=== PATIENT | female | born 1995 | race Caucasian/White ===

== ENCOUNTER 2021-01-28 05:32 | Inpatient (IN) | payer BC, SELFPAY ==
[2021-01-28] VITALS (52 sets, daily range): BP systolic 87–136; BP diastolic 49–82; PULSE 70–121; RESP 16–18; TEMP 36.3–36.9; O2SAT 88–100; BMI 25.7
[2021-01-28 06:29] LABS: Source Nasal/Nares
[2021-01-28 06:54] LABS: ROM Plus Positive
[2021-01-28 07:19] LABS: COVID-19 PCR Negative (Negative)
--- NOTE | 2021-01-28 07:38 | ANES.PREOP_ITS ---
General Info Date of Service Date Performed: 01/28/21 Height: 5 ft 4 in Weight: 68.039 kg Body Mass Index (BMI): 25.7 Meds Allergies and Home Medications Current Visit Medications: Current Medications Generic Name Dose Route Start Last Admin Trade Name Freq PRN Reason Stop Dose Admin Fentanyl/Ropivacaine 200 ml 01/28/21 07:15 Fentanyl/Ropivacaine 2 Mcg/Ml And 0.1% 200 Ml Cadd Cassette EP DIRECTED CLAYTON Sodium Chloride 500 mls @ 0 mls/hr 01/28/21 05:32 Saline 500ml Bag IV PRN PRN As Directed Ringer's Solution 500 mls @ 500 mls/hr 01/28/21 07:10 IV 01/28/21 08:09 BOLUS ONE IV Miscellaneous Supplies 1 each 01/28/21 05:45 Iv Access IV DIRECTED CLAYTON Sodium Chloride 0 ml 01/28/21 05:32 Normal Saline Flush 10 Ml Syr IVP PRN PRN PFSH Tobacco Smoking/Tobacco Use Status: Never Alcohol Alcohol Intake: never Substance Use Substance use type: does not use Prental History History 1 Para 0 Hx # Term Pregnancies Multiple births Hx # Pregnancies Ectopic pregnancies AB induced Hx Number of Living Children AB spontaneous Vital Signs and Lab Results Vital Signs Most Recent Vital Signs in EMR: Most Recent Vital Signs Temp Pulse Resp BP Pulse Ox 36.9 C 74 18 136/79 99 01/28/21 06:02 01/28/21 07:35 01/28/21 06:02 01/28/21 06:04 01/28/21 07:35 Lab Results Result Diagrams: 01/28/21 05:32 Blood Type / Crossmatch: Patient ABO/Rh Pending 01/28/21 05:32 01/28/21 Complete Blood Count: White Blood Count Pending 01/28/21 05:32 01/28/21 Red Blood Count Pending 01/28/21 05:32 01/28/21 Hemoglobin Pending 01/28/21 05:32 01/28/21 Hematocrit Pending 01/28/21 05:32 01/28/21 Platelet Count Pending 01/28/21 05:32 01/28/21 Complete Metabolic Panel: No Data to Display Liver Function Panel: No Data to Display Coagulation Panel: No Data to Display Cardiac Panel: No Data to Display Arterial Blood Gas: No Data to Display Venous Blood Gas: No Data to Display Pancreas Panel: No Data to Display Thyroid Panel: No Data to Display Infectious Disease: Coronavirus (COVID-19)(PCR) Negative (Negative) 01/28/21 06:20 01/28/21 Coronavirus 2019 Source Nasal/Nares 01/28/21 06:20 01/28/21 Blood Cultures: 2 No Data to Display Toxicology Panel: No Data to Display Panel: No Data to Display Anesthesia Assessment and Plan Anesthesia History Personal History: No History of Anesthesia Complications Family History: No Family History of Anesthesia Complications Exercise Tolerance Exercise Tolerance: Metabolic Equivalents>4 Pertinent Negatives Pertinent Negatives: No Symptoms of GERD Cardiac & Pulmonary Exam Cardiac Exam: Normal S1/S2 Heart Sounds Pulmonary Exam: Clear Bilateral Breath Sounds Implantable Cardiac Device Does patient have a Pacemaker or an ICD?: No Airway Exam Known Difficult Airway: No Mallampati Class: 2 Mouth Opening: Normal (> 3cm) Thyromental Distance: Greater than 3 cm Neck Range of Motion: Full ROM Neck Circumference: Normal Teeth Condition: Normal Dentition ASA Classification ASA Score: ASA 2 Emergency Case?: No NPO Status NPO Status: NPO Clears >2 hours, Solids >8 hours Status Status: Confirmed Anesthesia Plan Resuscitation Status: Full Code Anesthesia Technique: Epidural Anesthesia Airway Planned: Natural Airway Pain Management: Surgeon and patient request nerve block Monitors Used: Standard Monitors
[2021-01-28 08:04] LABS: HCT 30.1 % (36.0-46.0); HGB 8.6 g/dL (11.2-15.7); MCH 19.9 pg (27.0-33.0); MCHC 28.6 % (32.0-36.0); MCV 69.5 fL (80-95); RBC 4.33 10^6/uL (3.93-5.22); RDW 18.7 % (11.7-14.6); WBC 15.97 10^3/uL (4.4-10.8)
--- NOTE | 2021-01-28 08:23 | HPE_ITS ---
Date of service: 01/28/21 Time of Service: 08:23 Assessment and Plan Assessment and plan (1) : Status: Acute Assessment and plan: Nimisha is in labor at term. Bleeding likely due to a quicker progression of cervical dilation, FHT with some variables earlier possibly but now resolved, Category 1. Epidural is in place and effective. GBS-. Routine labor management, anticipate . Qualifiers: Weeks of gestation: 39 weeks Qualified Code(s): Z3A.39 - 39 weeks gestation of OB-HPI Labor/Delivery History of Present Illness Reason for Visit: Labor Chief Complaint: Uterine Contractions. VANESSA Calculator Estimated Delivery Date Method Current WG Current Estimate 02/04/21 LMP (Certain) 39w 0d History of Present Expected Delivery Route/Plan Nimisha is 24yo at 39.1w with Rh+ RI HepB- GBS-. Uncomplicated other than possible labor treated with betamethasone and nifedipine which resolved. Now at term, reported contractions started last night at 830pm and became more frequent by morning. She called around 330am with concern for SROM v urination as well as significant vaginal bleeding with clots and ongoing bleeding. Due to her location, she was first triaged at [facility] and found to be stable but in active labor, SVE 4-5cm. She then came directly here where ROM+ was positive although no active fluid leaking and no active bleeding. SVE at that time was 5-6cm. She was admitted in labor and soon requested epidural. She does report feeling out of it and a little dizzy. Review of Systems All systems reviewed & are unremarkable except as noted in HPI and below [facility] Active Problem List (Updated 01/28/21 @ 08:35 by Ernesto Hyman) (Acute) Social History Smoking/Tobacco Use Status: Never Smoking risk assessment performed?: Yes Alcohol Intake: never Substance use type: does not use Do you feel safe at home: Yes Do you feel safe in your relationship?: Yes History History 1 Para 0 Hx # Term Pregnancies Multiple births Hx # Pregnancies Ectopic pregnancies AB induced Hx Number of Living Children AB spontaneous Exam Physical Exam Vital signs: Temp Pulse Resp BP Pulse Ox 36.9 C 77 18 112/64 100 01/28/21 06:02 01/28/21 08:21 01/28/21 06:02 01/28/21 08:19 01/28/21 08:21 Vital Signs Reviewed: Yes Constitutional Constitutional: no acute distress Detailed Labor and Delivery Exam Solano Score: Cervical Points Exam 0 1 2 3 Dilation Closed 1-2cm 3-4 cm 5-6cm Effacement 0-30% 40-50% 60-70% 80% Consistency Firm Medium Soft Station -3 -2 -1,0 +1,+2 Position Posterior Mid Anterior Amniotic Membrane Status: Ruptured Rupture Method: Spontaneous ROM Plus: Positive Monitor Mode: External Contraction Frequency(min): q5-10min Contraction Duration(sec): 60 Contraction Intensity: Mild/Moderate Fetus A Heart Rate Baseline: 145 Monitor Accelerations: 15 X 15 Monitor Decelerations: Variable Variability: Moderate (6-25 BPM) Presentation: Cephalic Categories: Category II Date of Membrane Rupture: 01/28/21 Time of Membrane Rupture: 03:30 HEENT Exam HEENT Exam: Normal Respiratory Exam Respiratory Exam: Normal Cardiovascular Exam Cardiovascular Exam: Normal Abdominal Exam Abdominal Exam: Normal Extremities Exam Extremities Exam: Normal Back/Spine/Pelvis Exam Back Exam: Normal Pelvis Adequate: Yes Neurological Exam Neurological Exam: Normal Psychiatric Exam Psychiatric Exam: Normal Results Results Group Beta Strep: Negative Blood Type: A+ Varicella Immunity: Not Tested Risk Assessment Risk for Shoulder Dystocia Historical/Initial OB: NEGATIVE FOR: Pelvic Abnormality, Pre- BMI>30, Previous Shoulder Dystocia or Previous Macrosomia Increased Risk?: No Risk for Pre-Eclampsia Daily Dose ASA Indicated: No Risk for Post- Hemorrhage At Risk?: No Risks Reviewed Risks Reviewed Upon Admission: Yes
--- NOTE | 2021-01-28 08:25 | W.ANESNEU ---
Epidural/Spinal Catheter Date Performed: 01/28/21 Procedure Start: 07:55 Procedure Stop: 08:19 Requesting Provider: Ernesto Hyman Procedure Location: Obstetrics Reason Performed: Labor Epidural Standard Monitors Applied: Blood Pressure and SpO2 Patient Position: Sitting Sedation Given (Indicate Dose Given): No Sedation given Patient Mental Status: Awake Sterility: Hand Hygiene, Surgical Cap, Surgical Mask, Sterile Gloves, Sterile Drape/Sheet and Chlorhexidine Procedure Location: L4-L5 Interspace Epidural Needle: Tuohy 17 Guage Needle Length: 3.5 Inch Needle Approach: Midline Epidural Procedure: Skin Prepped, Sterile Drape Placed, 1% Lidocaine to skin and subcutaneous tissue with 25G needle, Tuohy Needle placed, SERA to Air Used (3rd attempt), SERA to Saline Used (First two attempts ), Positive Heme Noted (First attempt. Positive test dose. Aborted first attempt ) and Negative CSF Flow Catheter Placed?: Catheter Placed Test Dose (Indicate Dose Given): 3ml 1.5% Lidocaine with 1:200K Epinephrine Given (2ml first attempt. 3 ml third attempt), Negative Test Dose (3rd attempt) and Positive Test Dose (First attempy) Loss of Resistance Depth (cm): 8 Catheter depth at skin (cm): 12 Dressing: Sorbaview Dressing Placed, Mastisol Used and Dressing reinforced with Tape Epidural Provider Bolus (Indicate Dose Given): Total Ropivacaine 0.1% with Fentanyl 2mcg/ml Given from pump (ml) Dose:: 8ml Additives (Indicate Dose Given ): None Infusion Medication: Medication Infusion Began Medication Infusion: Ropivacaine 0.1% with Fentanyl 2mcg/ml Maintenance Infusion Rate (ml/hour): 8 PCEA Bolus Dose (ml): 5 Block Level: T9 Paresthesia: Left (Second attempt abprted due to significant paresthesia with cath placement. Resolved with removal of cath) Paresthesia Duration: Transient Ultrasound: Not Used Number of Attempts (See previous attempts in note section): 3 Procedure Tolerated: Patient tolerated well Procedure Outcome: Successful Performed By: Cl Pittman
[2021-01-28 08:47] LABS: Platelet Count 169 10^3/uL (130-400)
[2021-01-28] MEDS: Ondansetron 4 MG/2 ML VIAL IVP (09:09)
--- NOTE | 2021-01-28 09:18 | W.PM.OBNL1 ---
Date of service: 01/28/21 Time of Service: 09:18 Pelvic Exam Dilation: 8 Effacement (%): 90 station: -2 Cervix Position: anterior Consistency: soft Vaginal Exam Presentation: Cephalic Contractions Monitor Mode: External Contraction Frequency(min): 5 Contraction Duration(sec): 60 Intensity: Moderate Fetus A Monitor: External (US) Heart Rate Baseline: 145 Presentation: Cephalic Variability: Minimal (1-5 BPM) Categories: Category II FHR Rhythm: Regular Characteristics: Normal Accelerations: 15 X 15 Decelerations: None Amniotic Membrane Status: Intact Assessment Note: Bulging bag palpated on exam, ROM+ likely false positive due to blood. Assessment and Plan Assessment and plan (1) : Status: Acute Assessment and plan: Progressing well. BP coming up after epidural with fluid blous. FHT category two with decreased variability, likely due to hypotension as well as lack of glucose. Will monitor. Continue present management. Qualifiers: Weeks of gestation: 39 weeks Qualified Code(s): Z3A.39 - 39 weeks gestation of Objective Abnormal lab results 01/28/21 Range/Units 07:44 WBC 15.97 H (4.4-10.8) 10^3/uL Hgb 8.6 L (11.2-15.7) g/dL Hct 30.1 L (36.0-46.0) % MCV 69.5 L (80-95) fL MCH 19.9 L (27.0-33.0) pg MCHC 28.6 L (32.0-36.0) % RDW 18.7 H (11.7-14.6) % Temp Pulse Resp BP Pulse Ox 36.9 C 97 H 18 114/58 L 88 L 01/28/21 06:02 01/28/21 09:17 01/28/21 06:02 01/28/21 09:17 01/28/21 08:52 Laboratory Results WBC 15.97 10^3/uL (4.4-10.8) H 01/28/21 07:44 RBC 4.33 10^6/uL (3.93-5.22) 01/28/21 07:44 Hgb 8.6 g/dL (11.2-15.7) L 01/28/21 07:44 Hct 30.1 % (36.0-46.0) L 01/28/21 07:44 MCV 69.5 fL (80-95) L 01/28/21 07:44 MCH 19.9 pg (27.0-33.0) L 01/28/21 07:44 MCHC 28.6 % (32.0-36.0) L 01/28/21 07:44 RDW 18.7 % (11.7-14.6) H 01/28/21 07:44 Plt Count 169 10^3/uL (130-400) 01/28/21 07:44 MPV fL (8.0-11.0) 01/28/21 07:44 Membranes Rupture Positive 01/28/21 06:00 COVID-19 Source Nasal/Nares 01/28/21 06:20 SARS-CoV-2 (PCR) Negative (Negative) 01/28/21 06:20 Patient ABO/Rh A Positive 01/28/21 07:44 Antibody Screen NEGATIVE 01/28/21 07:44 Subjective Patient Reports: No new Complaints Interval history since last seen: Epidrual in place and working well. She was feeling a bit dizzy, spots in vision, BP ethan to 87/53, now improved to 128/89 after 500cc bolus. FHT somewhat flat, she hasn't eaten since last night, having a popsicle now as well. Results Hemoglobin/Hematocrit: Hgb 8.6 g/dL (11.2-15.7) L 01/28/21 07:44 Hct 30.1 % (36.0-46.0) L 01/28/21 07:44 Abnormal Lab Findings: Abnormal Labs 01/28/21 07:44 WBC 15.97 H Hgb 8.6 L Hct 30.1 L MCV 69.5 L MCH 19.9 L MCHC 28.6 L RDW 18.7 H
[2021-01-28] MEDS: Lactated Ringers 500 ML 250 ML IV (09:36)
--- NOTE | 2021-01-28 12:13 | W.PM.OBNL1 ---
Date of service: 01/28/21 Time of Service: 12:13 Pelvic Exam Dilation: 9 Effacement (%): 100 station: -2 Cervix Position: anterior Consistency: soft Vaginal Exam Presentation: Cephalic ROM Plus: Positive Comments: AROM performed with copious clear fluid. Contractions Monitor Mode: External Contraction Frequency(min): 4 Contraction Duration(sec): 60 Intensity: Moderate Fetus A Monitor: External (US) Heart Rate Baseline: 140 Presentation: Cephalic Variability: Moderate (6-25 BPM) Categories: Category I FHR Rhythm: Regular Characteristics: Normal Accelerations: 15 X 15 Decelerations: None Amniotic Membrane Status: Ruptured (AROM performed with clear fluid) Rupture Method: Artifical Amniotic Fluid: Clear Amount: copious Date of Membrane Rupture: 01/28/21 Time of Membrane Rupture: 12:16 Assessment Note: Category 1, reassuring Assessment and Plan Assessment and plan (1) : Status: Acute Assessment and plan: Nimisha is doing great, SVE 9/100/-2, AROM just performed and I suspect she will be ready to push soon. Continue present managment. Qualifiers: Weeks of gestation: 39 weeks Qualified Code(s): Z3A.39 - 39 weeks gestation of Objective Abnormal lab results 01/28/21 Range/Units 07:44 WBC 15.97 H (4.4-10.8) 10^3/uL Hgb 8.6 L (11.2-15.7) g/dL Hct 30.1 L (36.0-46.0) % MCV 69.5 L (80-95) fL MCH 19.9 L (27.0-33.0) pg MCHC 28.6 L (32.0-36.0) % RDW 18.7 H (11.7-14.6) % Temp Pulse Resp BP Pulse Ox 36.9 C 79 18 121/72 88 L 01/28/21 06:02 01/28/21 09:51 01/28/21 06:02 01/28/21 09:51 01/28/21 08:52 Laboratory Results WBC 15.97 10^3/uL (4.4-10.8) H 01/28/21 07:44 RBC 4.33 10^6/uL (3.93-5.22) 01/28/21 07:44 Hgb 8.6 g/dL (11.2-15.7) L 01/28/21 07:44 Hct 30.1 % (36.0-46.0) L 01/28/21 07:44 MCV 69.5 fL (80-95) L 01/28/21 07:44 MCH 19.9 pg (27.0-33.0) L 01/28/21 07:44 MCHC 28.6 % (32.0-36.0) L 01/28/21 07:44 RDW 18.7 % (11.7-14.6) H 01/28/21 07:44 Plt Count 169 10^3/uL (130-400) 01/28/21 07:44 MPV fL (8.0-11.0) 01/28/21 07:44 Membranes Rupture Positive 01/28/21 06:00 COVID-19 Source Nasal/Nares 01/28/21 06:20 SARS-CoV-2 (PCR) Negative (Negative) 01/28/21 06:20 Patient ABO/Rh A Positive 01/28/21 07:44 Antibody Screen NEGATIVE 01/28/21 07:44 Subjective Patient Reports: No new Complaints Interval history since last seen: Ali is doing great. Progressed to 9/100/-2. Epidural still effective. She just emptied her bladder. Results Hemoglobin/Hematocrit: Hgb 8.6 g/dL (11.2-15.7) L 01/28/21 07:44 Hct 30.1 % (36.0-46.0) L 01/28/21 07:44 Abnormal Lab Findings: Abnormal Labs 01/28/21 07:44 WBC 15.97 H Hgb 8.6 L Hct 30.1 L MCV 69.5 L MCH 19.9 L MCHC 28.6 L RDW 18.7 H
[2021-01-28] MEDS: Oxytocin 10 UNITS/ML VIAL IM (13:55)
[2021-01-28] MEDS: Lidocaine 1% Multi-Dose 20 ML VIAL IJ (14:30)
--- NOTE | 2021-01-28 14:42 | OBVDS_ITS ---
Date of service: 01/28/21 Time of Service: 14:42 OB Labor/ Delivery Information Baby A Delivery Delivery Method: Spontaneaous Presentation: Other (left hand presented on face) Cephalic Position: Vertex Vertex Position: Left Occipital Anterior Breech Position: N/A Cord Description-Baby A: 3 Vessels Amniotic Fluid: Bloody Estimated Blood Loss: 200 Delivery Outcome: Liveborn Complications: none Infant Transferred: Remains with Mother Note: 24y [id number] with Rh+ RI GBS- presented in labor and progressed well. Epidural in place for pain management. FHT category 1 throughout. Once she was complete, she pushed effectively and delivered a vigorous female infant in SHERRIE position with left hand on face. Baby was placed on mothers abdomen and, when cord pulsations stopped, dad cut the cord. Apgars for baby were 9 and 9. 10mg Pitocin given IM in left thigh. Placenta delivered spontaneously. Fundus was firm, however she was bleeding more than expected. Vagina examined for lace rations and I felt there was a posterior cervical laceration. I asked Dr Tipton to assist with repair, please see other procedure note. She was able to repair the laceration and achieve hemostasis. She also had to 1st degree vaginal wall lacerations on the right that did not require repair. Blood loss was 200cc. Ali was quite anemic before delivery. Will check H&H tomorrow. Will require iron supplementation post . Otherwise, routine post care. Providers Doctor: Ernesto Hyman Band And Cuff Cutter: Cl Pittman Nurse: Tere Anderson Nurse: George Echols Labor/Delivery Information Number of Babies in Womb: 1 Steroids Given: None Reason Steroids Not Administered: N/A Group Beta Strep: Negative Blood Type: A+ Varicella Immunity: Not Tested Medication in Delivery: zofran Maternal Complications: Other Shoulder Dystocia: No Stages of Labor Onset of Labor Date: 01/27/21 Onset of Labor Time: 20:00 Complete Dilatation Date: 01/28/21 Complete Dilatation Time: 13:22 Labor - Stage 1 Duration: 24 hours and 0 minutes ROM Baby A: 01/28/21 ROM Baby A: 12:08 ROM Total Time- Baby A: [id number] Delivery Date-Baby A: 01/28/21 Infant Delivery Time-Baby A: 13:48 Labor Stage 2 Duration: 26 minutes Placenta Delivery Date-Baby A: 01/28/21 Placenta Delivery Time-Baby A: 13:54 Labor-Stage 3 Duration: 6 minutes Total Length of Labor-Baby A: 17 hours and 48 minutes Placenta Status: Delivered Baby A Infant Gender: Female Gestational Status: Term (39-41.6 wks) Gestational Age in Weeks/Days: 39 Weeks and 0 Days Score-1 Minute Interval(Baby A) Heart Rate-1 minute: 100 BPM or Greater Respiratory Effort- 1 minute: Spontaneous/Strong Cry Muscle Tone-1 minute: Active Movement Reflex Response-1 minute: Prompt Response Color-1 minute: Bluish Hands or Feet Total Score-1 minute: 9 Score-5 Minute Interval(Baby A) Heart Rate- 5 minute: 100 BPM or Greater Respiratory Effort-5 minute: Spontaneous/Strong Cry Muscle Tone-5 minute: Active Movement Reflex Response-5 minute: Prompt Response Color-5 minute: Bluish Hands or Feet Total Score- 5 minute: 9 Procedure Procedures: Other (repair of cervical laceration, please see note by Dr Archibald) Interventions Pain Management/ Repair of Laceration Hemorrrhage Note Total Blood Loss for PPH Event Quantitative Blood Loss: 200
[2021-01-28] MEDS: Acetaminophen 325 MG TAB 650 MG PO (16:37)
--- NOTE | 2021-01-28 17:52 | W.OBDELIVERY ---
Date of service: 01/28/21 Time of Service: 18:05 OB Labor/ Delivery Information Providers Doctor: Ernesto Hyman Financial Writer: Cl Pittman Nurse: Tere Anderson Nurse: George Echols Labor/Delivery Information Number of Babies in Womb: 1 Steroids Given: None Reason Steroids Not Administered: N/A Group Beta Strep: Negative Blood Type: A+ Varicella Immunity: Not Tested Medication in Delivery: zofran Maternal Complications: Other Shoulder Dystocia: No Stages of Labor Onset of Labor Date: 01/27/21 Onset of Labor Time: 20:00 Complete Dilatation Date: 01/28/21 Complete Dilatation Time: 13:22 Labor - Stage 1 Duration: 24 hours and 0 minutes ROM Baby A: 01/28/21 ROM Baby A: 12:08 ROM Total Time- Baby A: [id number] Delivery Date-Baby A: 01/28/21 Infant Delivery Time-Baby A: 13:48 Labor Stage 2 Duration: 26 minutes Placenta Delivery Date-Baby A: 01/28/21 Placenta Delivery Time-Baby A: 13:54 Labor-Stage 3 Duration: 6 minutes Total Length of Labor-Baby A: 17 hours and 48 minutes Placenta Status: Delivered Baby A Infant Gender: Female Gestational Status: Term (39-41.6 wks) Gestational Age in Weeks/Days: 39 Weeks and 0 Days Score-1 Minute Interval(Baby A) Heart Rate-1 minute: 100 BPM or Greater Respiratory Effort- 1 minute: Spontaneous/Strong Cry Muscle Tone-1 minute: Active Movement Reflex Response-1 minute: Prompt Response Color-1 minute: Bluish Hands or Feet Total Score-1 minute: 9 Score-5 Minute Interval(Baby A) Heart Rate- 5 minute: 100 BPM or Greater Respiratory Effort-5 minute: Spontaneous/Strong Cry Muscle Tone-5 minute: Active Movement Reflex Response-5 minute: Prompt Response Color-5 minute: Bluish Hands or Feet Total Score- 5 minute: 9 Interventions Repair of Laceration Type: Cervical , Laceration Extension: N/A . Sponge Count Correct: Yes , Sharp Count Correct: Yes . Laceration Repair Note: I was asked to assist with evaluation of a cervical laceration that had been identified by Dr Ernesto Neumann after a successful vaginal delivery. With the pt in the dorsal lithotomy position I was able to insert a bivalve speculum and examin the anterior and posterior surface of the cervix. The anterior portion of the cervix was intact and hemostatic. There was a laceration of the posterior wall of the cervix that extended 5 cm cephalad from the distal end of the cervix. The anterior lip of the cervix was grasped with a ring forceps and a 3-0 Vicryl was used to reapproximate the most distal edges of the posterior laceration in a running fashion. A single gloved finger was inserted into the external os the more proximal cervical wall defect was palpated. A 0-Vicryl suture was then used to complete the reapproximation in a running locked fashion. There was 3cm of intact cervix at the most proximal end not requiring repair. At the completion of the procedure the repair site was hemostatic and a single finger could be placed in to os and no defect palpated. Pt tolerated the procedure well. Hemorrrhage Note Total Blood Loss for PPH Event Quantitative Blood Loss: 200
[2021-01-29 07:21] LABS: HCT 28.3 % (36.0-46.0); MCH 19.8 pg (27.0-33.0); MCHC 28.3 % (32.0-36.0); MCV 69.9 fL (80-95); Platelet Count 158 10^3/uL (130-400); RBC 4.05 10^6/uL (3.93-5.22); RDW 19.1 % (11.7-14.6); RDW-SD 46.4 fL; WBC 18.47 10^3/uL (4.4-10.8)
[2021-01-29 08:00] VITALS: BP 133/93; PULSE 91; RESP 14; TEMP 36.6; O2SAT 98
--- NOTE | 2021-01-29 10:59 | W.ANESPOSTOP ---
Postoperative Evaluation Date, Time and Location Date Performed: 01/29/21 Time Performed: 10:59 Patient Location: Obstetrics Vital Signs Most Recent Imported Vital Signs: Most Recent Vital Signs Temp Pulse Resp BP Pulse Ox 36.6 C 91 H 14 133/93 H 98 01/29/21 08:00 01/29/21 08:00 01/29/21 08:00 01/29/21 08:00 01/29/21 08:00 Pain Score Most Recent Pain Score: Most Recent Pain Score Pain Level [Genital] 3 01/29/21 08:00 Pain Level [Lower Abdomen] 0 01/29/21 08:00 Pain Level 1 01/28/21 16:37 Assessment Mental Status: Awake (Alert & Oriented to Patient Baseline) Airway and Respiratory Function: Patent airway with normal (patient baseline) respiratory exam Cardiovascular Function: Hemodynamically Stable Hydration Status: Adequately Hydrated Nausea & Vomiting: No Nausea or Vomiting Pain: Pain is tolerable per patient Peripheral Nerve Block: Patient did not receive a nerve block
[2021-01-29 16:23] VITALS: BP 129/83; PULSE 88; RESP 16; TEMP 36.9
--- NOTE | 2021-01-29 17:16 | DSE_ITS ---
Date of service: 01/29/21 Time of Service: 17:16 DS: Diagnosis Discharge Diagnosis (1) : Status: Acute (2) Cervical laceration: Status: Acute Discharge Plan Disposition Patient Disposition: HOME Condition: Good Discharge Details Reason For Visit: Labor Admit Date/Time: 01/28/21 05:32 Admit Provider: Ernesto Hyman Attending Provider: Ernesto Hyman Home Meds and New Rx's Prescriptions: No Action ondansetron 4 mg tablet,disintegrating 4 mg PO DAILY RF: 0 Discharge Instructions Stand Alone Forms: BC Post Vaginal Deliver Activity:: Activity as Tolerated Equipment/Supplies:: No Equipment Needed Diet:: As Tolerated Discharge Orders Discharge Orders: Discharge Order (Routine); Ordered 01/29/21 Ordered By: Ernesto Hyman OB:DS Summary Summary Vaginal Delivery Method: Spontaneaous Episiotomy Description: None Laceration Description: Cervical Laceration Extension: N/A complications OB DS: none Time spent discussing smoking cessation with patient: 3 to 10 minutes Contraception Discussed Contraception Discussed: Yes, Infant Gender-Baby A: Female weight: 3515 g Disposition of Baby A: Home Gender-Baby B: Female Status at Discharge Functional status at discharge: independent ambulation Overall status at discharge: patient is back to baseline Mental Status: mental status grossly normal Speech and Movement: speech and movement normal Mood: congruent mood Affect: normal affect Time Spent with Patient providing and/or coordinating discharge services: Less than 30 minutes Quality: AMI Clinical Trial Participant: No Hospital Course 24yo [id number] sp with Rh+ RI GBS-. Uncomplicated labor however delivery was complicated by an extensive cervical laceration. Dr Lawrence repaired this in the delivery room, blood loss of 200cc. Otherwise uncomplicated post course, bleeding minimal, advised to use peribottle and not wipe. Fundus firm. Passing flatus, up and about without dizziness. Hgb 8.0 day of discharge, down from 8.6 on admission. Stressed daily iron supplementation, and will recheck outpatient. Nursing is going well. Discharge home today with follow up in clinic with Dr Dhillon on Friday. Exam Physical Exam Vital signs: Temp Pulse Resp BP Pulse Ox 36.9 C 88 16 129/83 98 01/29/21 16:23 01/29/21 16:23 01/29/21 16:23 01/29/21 16:23 01/29/21 08:00 Vital Signs Reviewed: Yes Constitutional Constitutional: no acute distress Respiratory Exam Respiratory Exam: Normal Cardiovascular Exam Cardiovascular Exam: Normal Fundal Exam Fundus: Below Umbilicus and Firm Extremities Exam Extremity Exam: Normal Neurological Exam Neurological Exam: Normal Psychiatric Exam Psychiatric Exam: Normal [facility] Active Problem List (Updated 01/29/21 @ 17:17 by Ernesto Hyman) Cervical laceration (Acute) (Acute) Social History Smoking/Tobacco Use Status: Never Smoking risk assessment performed?: Yes Alcohol Intake: never Substance use type: does not use Do you feel safe at home: Yes Do you feel safe in your relationship?: Yes History History 1 Para 0 Hx # Term Pregnancies Multiple births Hx # Pregnancies Ectopic pregnancies AB induced Hx Number of Living Children AB spontaneous DS: Data Vitals/I&O Vitals and I&O: Vital Signs Temperature 36.9 C 01/29/21 16:23 Pulse 88 01/29/21 16:23 Pulse Rhythm Regular 01/29/21 16:13 Respiratory Rate 16 01/29/21 16:23 Respiratory Depth Normal 01/28/21 08:28 Blood Pressure 129/83 01/29/21 16:23 Blood Pressure Mean 98 01/29/21 16:23 Pulse Oximetry 98 01/29/21 08:00 Oxygen Delivery Method Room Air 01/28/21 06:02 Oxygen Flow Rate 0 01/28/21 06:02 Pain Level 0 01/29/21 16:23 Intake & Output 01/28/21 01/29/21 01/29/21 23:59 11:59 23:59 Intake Total 1100 / 1190 Output Total 675 / 775 Balance 425 / 415 Intake: IV 500 / 500 Oral 600 / 690 Output: Urine 475 / 575 Blood 200 / 200 Other: Urine Color Yellow Urine Appearance Clear Urine Odor None Voiding Methods Bedside Commode Data Completed and Pending Labs on day of discharge: Labs from last 24 hours 01/29/21 06:22 WBC 18.47 H RBC 4.05 Hgb 8.0 L Hct 28.3 L MCV 69.9 L MCH 19.8 L MCHC 28.3 L RDW 19.1 H Plt Count 158 MPV
== END 2021-01-29 20:19 | disposition home or self-care (01) | DRG 768 ==
PROVIDERS: Admitting Provider Family Medicine; Visit Provider Family Medicine
DX: O99.02 Anemia complicating childbirth (principal); Z37.0 Single live birth; O71.3 Obstetric laceration of cervix; Z3A.39 39 weeks gestation of pregnancy; Z20.822 Contact with and (suspected) exposure to COVID-19; D64.9 Anemia, unspecified
CPT/HCPCS: 57720; 36415; 84112; 85027; 86850; 86900; 86901; 87635; J2405; J2590; J3490